=== PATIENT | male | born 1990 | race Caucasian/White ===

== ENCOUNTER 2016-11-06 10:20 | Emergency (ER) | payer OTHER ==
[2016-11-06 10:27] VITALS: TEMP 98.2
[2016-11-06] MEDS ORDERED: ONDANSETRON 4 MG/2 ML VIAL IVP ONE (10:33)
[2016-11-06] MEDS ORDERED: HYDROmorphONE/DILAUDID 1 MG/ML INJ IVP ONE (10:33)
[2016-11-06 10:54] LABS: % IMMATURE GRANULYOCYTES 0.8 % (0.0-1.1); ABSOLUTE IMMATURE GRANULOCYTES 0.06 10^3/uL (0.00-0.10); ADD DIFF? NO; ADD MORPH? NO; ADD SCAN? NO; ATYPICAL LYMPHOCYTE FLAG 0 (0-99); FRAGMENT RBC FLAG 0 (0-99); HEMOGLOBIN 15.7 g/dL (13.7-17.5); LEFT SHIFT FLG 0 (0-99); LIPEMIA HEMOLYSIS FLAG 90 (0-99); MEAN CELL HEMOGLOBIN CONCENTR. 35.7 g/dL (32.4-36.7); MEAN PLATELET VOLUME 10.1 fL (8.7-11.7); PLATELET CLUMPS FLAG 10 (0-99); PLATELET COUNT 244 10^3/uL (150-400); RED BLOOD CELL COUNT 5.06 10^6/uL (4.40-6.38); RED CELL DISTRIBUTION WIDTH 12.5 % (11.5-15.2)
[2016-11-06 11:09] LABS: ANION GAP 13 mEq/L (8-16); CALCIUM 10.7 mg/dL (8.5-10.4); CARBON DIOXIDE 18 mEq/l (22-31); CHLORIDE 109 mEq/L (97-110); CREATININE 1.1 mg/dL (0.7-1.3); GLOMERULAR FILTRATION RATE > 60; GLUCOSE 88 mg/dL (70-100); SODIUM 140 mEq/L (134-144)
--- NOTE | 2016-11-06 11:10 | EDPHY ---
H & P Stated Complaint: r testicular pain with hx of torsion Time Seen by Provider: 11/06/16 10:34 HPI/ROS: CHIEF COMPLAINT: right testicular pain HISTORY OF PRESENT ILLNESS: 25-year-old male presents emergency department complaining of right testicular pain since awakening this morning. Patient denies fevers or chills or abdominal pain. He has a history of testicular torsion 7 years ago with surgery. Patient states intermittent testicular pain since this time. He was diagnosed with epididymitis a year or 2 ago and treated with antibiotics. In states he was seen in an ER 4 right testicular pain down in [place] 3 months ago and had a normal ultrasound. Patient denies penile discharge, no history of STDs. REVIEW OF SYSTEMS: A comprehensive 10 point review of systems is otherwise negative aside from elements mentioned in the history of present illness. Source: Patient Exam Limitations: No limitations - Personal History Current Tetanus/Diphtheria Vaccine: Yes - Medical/Surgical History Hx Asthma: Yes Hx Chronic Respiratory Disease: No Hx Diabetes: No Hx Cardiac Disease: No Hx Renal Disease: No Hx Cirrhosis: No Hx Alcoholism: No Hx HIV/AIDS: No Hx Splenectomy or Spleen Trauma: No Other PMH: testicular torsion - Social History Smoking Status: Current every day smoker - Physical Exam Exam: Physical Exam Gen: Alert and Oriented, NAD HEENT: PERRL, moist mucous membranes NECK: no meningismus CV: regular rate and regular rhythm PULM: CTAB, no wheezes ABDOMEN: soft, non tender to palpation, BS present : No scrotal swelling, normal circumcised penis, no discharge, significant tenderness to light touch to right scrotum BACK: No CVA tenderness NEURO: Neurologically grossly intact EXTREMITIES: normal appearing SKIN: no rash or break in skin on exposed skin PSYCH: answers questions appropriately. Constitutional: Initial Vital Signs Temperature (C) 36.8 C 11/06/16 10:25 Heart Rate 79 11/06/16 10:25 Respiratory Rate 18 11/06/16 10:25 Blood Pressure 152/82 H 11/06/16 10:25 O2 Sat (%) 99 11/06/16 10:25 O2 Delivery Mode Room Air Allergies/Adverse Reactions: No Known Allergies Allergy (Unverified 11/06/16 10:24) Home Medications: Medication Instructions Recorded ALBUTEROL SULFATE 11/06/16 Advair 100/50 (*) 11/06/16 Flonase Allergy Relief 11/06/16 Singulair 11/06/16 Medical Decision Making - Diagnostics Imaging Results: Imaging Impressions Testicular Ultrasound 11/06/16 10:32 Impression: 1. Right thrombosed varicocele or varicose vein appears to correlate to the region of pain. 2. No testicular torsion. 3. Scarring in the right testis without evidence of intratesticular masses. 4. No evidence of epididymitis or orchitis. Findings and recommendations discussed with Emergency Department, Dali Mcfarland NP, at 1149 hours on November 06, 2016. Final report concurs with initial preliminary interpretation. ED Course/Re-evaluation: IV established, cbc, chemistry panel, urinalysis ordered. 1mg of IV dilaudid and 4mg zofran given for pain control. 1110am- US at bedside. 12pm-ultrasound shows a 3 cm thrombosed varicocele in the right scrotum. No torsion, no mass. Urology paged. 1225pm- I spoke with Dr. Daniel. He recommends scrotal support, warm soaks once a day for 20 minutes, nsaids, rest x 1 week. Follow up with urologist for continued symptoms. Differential Diagnosis: The differential diagnosis for the patient's testicular pain included but was not limited to epididymitis, orchitis, referred pain from kidney stone, inguinal hernia, and torsion of the testicle. - Data Points Laboratory Results: Laboratory Results 11/06/16 10:45 11/06/16 10:45 11/06/16 11/06/16 11/06/16 11:45 10:45 10:45 WBC 7.42 10^3/uL 10^3/uL (3.80-9.50) RBC 5.06 10^6/uL 10^6/uL (4.40-6.38) Hgb 15.7 g/dL g/dL (13.7-17.5) Hct 44.0 % % (40.0-51.0) MCV 87.0 fL fL (81.5-99.8) MCH 31.0 pg pg (27.9-34.1) MCHC 35.7 g/dL g/dL (32.4-36.7) RDW 12.5 % % (11.5-15.2) Plt Count 244 10^3/uL 10^3/uL (150-400) MPV 10.1 fL fL (8.7-11.7) Neut % (Auto) 47.9 % % (39.3-74.2) Lymph % (Auto) 34.4 % % (15.0-45.0) [place] % (Auto) 8.4 % % (4.5-13.0) Eos % (Auto) 7.4 % % (0.6-7.6) Baso % (Auto) 1.1 % % (0.3-1.7) Nucleat RBC Rel Count 0.0 % % (0.0-0.2) Absolute Neuts (auto) 3.56 10^3/uL 10^3/uL (1.70-6.50) Absolute Lymphs (auto) 2.55 10^3/uL 10^3/uL (1.00-3.00) Absolute Monos (auto) 0.62 10^3/uL 10^3/uL (0.30-0.80) Absolute Eos (auto) 0.55 10^3/uL H 10^3/uL (0.03-0.40) Absolute Basos (auto) 0.08 10^3/uL 10^3/uL (0.02-0.10) Absolute Nucleated RBC 0.00 10^3/uL 10^3/uL (0-0.01) Immature Gran % 0.8 % % (0.0-1.1) Immature Gran # 0.06 10^3/uL 10^3/uL (0.00-0.10) Sodium 140 mEq/L mEq/L (134-144) Potassium 4.0 mEq/L mEq/L (3.5-5.2) Chloride 109 mEq/L mEq/L (97-110) Carbon Dioxide 18 mEq/l L mEq/l (22-31) Anion Gap 13 mEq/L mEq/L (8-16) BUN 14 mg/dL mg/dL (7-23) Creatinine 1.1 mg/dL mg/dL (0.7-1.3) Estimated GFR > 60 Glucose 88 mg/dL mg/dL (70-100) Calcium 10.7 mg/dL H mg/dL (8.5-10.4) Phosphorus 1.8 mg/dL L mg/dL (2.5-4.5) Urine Color YELLOW Urine Appearance CLEAR Urine pH 8.0 H (5.0-7.5) Ur Specific [place] 1.015 (1.002-1.030) Urine Protein NEGATIVE (NEGATIVE) Urine Ketones NEGATIVE (NEGATIVE) Urine Blood NEGATIVE (NEGATIVE) Urine Nitrate NEGATIVE (NEGATIVE) Urine Bilirubin NEGATIVE (NEGATIVE) Urine Urobilinogen NEGATIVE EU EU (0.2-1.0) Ur Leukocyte Esterase NEGATIVE (NEGATIVE) Urine Glucose NEGATIVE (NEGATIVE) Medications Given: Discontinued Medications Hydromorphone HCl (Dilaudid) 1 mg IVP EDNOW ONE Stop: 11/06/16 10:34 Last Admin: 11/06/16 10:40 Dose: 1 mg Ketorolac Tromethamine (Toradol) 15 mg IVP EDNOW ONE Stop: 11/06/16 12:27 Last Admin: 11/06/16 12:31 Dose: 15 mg Ondansetron HCl (Zofran) 4 mg IVP EDNOW ONE Stop: 11/06/16 10:34 Last Admin: 11/06/16 10:40 Dose: 4 mg Departure - Departure Disposition: Home, Routine, Self-Care Clinical Impression: Right varicocele Condition: Good Instructions: Varicocele (ED) Additional Instructions: Rest, use scrotal support, warm water soaks once a day for 20 minutes, take 600mg of ibuprofen every 8 hours with food for 7 days. Do this for 7 days and follow up with the urologist for any continued symptoms. See them sooner for worsening symptoms. Referrals: Klaudia Daniel MD [Medical Doctor] - As per Instructions (urologist environment friendly landscape designer)
[2016-11-06 11:39] VITALS: BP 120/80; PULSE 70; RESP 20; O2SAT 97
[2016-11-06 11:58] LABS: COLOR YELLOW; LEUKOCYTE ESTERASE,URINE NEGATIVE (NEGATIVE); NITRITE,URINE NEGATIVE (NEGATIVE)
[2016-11-06] MEDS ORDERED: KETOROLAC 15 MG/1 ML SDV IVP ONE (12:26)
== END 2016-11-06 12:37 | disposition home or self-care (01) ==
DX: I86.1 Scrotal varices (principal); F17.200 Nicotine dependence, unspecified, uncomplicated; J45.909 Unspecified asthma, uncomplicated
CPT/HCPCS: 96374; J1170; J1885; J2405